=== PATIENT | male | born 1995 | race Caucasian/White ===

== ENCOUNTER 2018-01-27 10:38 | Emergency (ER) | payer OTHER ==
[~2018-01-27] VITALS: Ht 182.9 cm; Wt 98.6 kg
[2018-01-27 10:48] VITALS: BP 133/89; TEMP 98.9
[2018-01-27] MEDS ORDERED: PHENERGAN 25 TA25 MG PO (12:20)
[2018-01-27] MEDS ORDERED: NORCO 325 MG-51 TAB PO (12:20)
[2018-01-27 12:36] VITALS: PULSE 86
== END 2018-01-27 12:36 | disposition home or self-care (01) ==
LOC: COL.ER 10:38
DX: N20.1 Calculus of ureter (principal); Z87.442 Personal history of urinary calculi